=== PATIENT | female | born 1950 | race Caucasian/White ===

== ENCOUNTER 2018-09-26 23:41 | Inpatient (IN) | payer SELFPAY ==
[2018-09-26 23:41] VITALS: BMI 33.0
--- NOTE | 2018-09-27 00:31 | C.PDOC ---
History Of Present Illness 67 year old female with PMHx of HTN and DM presents to the ED c/o elevated blood pressure. Patient states she took her Metropolol at 23:20. Patient is a non insulin dependent diabetic, christine snot recall the name of the medications she takes. Patient c/o mild headache and not feeling well. Patient denies fever, chills, visual changes, neck pain, CP, SOB, palpitations, weakness, numbness. Time Seen by Provider: 09/27/18 00:30 Chief Complaint (Nursing): High Blood Pressure History Per: Patient History/Exam Limitations: no limitations Onset/Duration Of Symptoms: Hrs Current Symptoms Are (Timing): Still Present Associated Symptoms: Headache Exacerbating Factor(s): Pos: Other Recent travel outside of the [place]: No Additional History Per: Patient Past Medical History Reviewed: Historical Data, Nursing Documentation, Vital Signs Vital Signs: Last Vital Signs Temp 97.9 F 09/27/18 00:02 Pulse 90 09/27/18 00:02 Resp 20 09/27/18 00:02 BP 239/109 H 09/27/18 00:02 Pulse Ox 97 09/27/18 00:02 - Medical History PMH: Diabetes, HTN Denies: Depression Surgical History: No Surg Hx Family History: States: Unknown Family Hx - Social History Hx Alcohol Use: No Hx Substance Use: No Review Of Systems Constitutional: Positive for: Malaise. Negative for: Fever, Chills Eyes: Negative for: Vision Change Cardiovascular: Negative for: Chest Pain, Palpitations Respiratory: Negative for: Cough, Shortness of Breath Gastrointestinal: Negative for: Nausea, Vomiting, Abdominal Pain Skin: Negative for: Rash Neurological: Positive for: Headache. Negative for: Weakness, Numbness, Dizziness Physical Exam - Physical Exam Appears: Non-toxic, No Acute Distress Skin: Warm, Dry Head: Normacephalic Eye(s): bilateral: Normal Inspection, PERRL, EOMI Neck: No Midline Cervical Tenderness, Supple Chest: Symmetrical Cardiovascular: Rhythm Regular Respiratory: No Rales, No Rhonchi, No Wheezing Gastrointestinal/Abdominal: Soft, No Tenderness, No Guarding, No Rebound Extremity: Bilateral: Atraumatic, Normal Color And Temperature, Normal ROM Neurological/Psych: Oriented x3, Normal Speech, Normal Cognition Gait: Steady ED Course And Treatment - Laboratory Results Result Diagrams: 09/27/18 00:43 09/27/18 00:43 ECG: Interpreted By Me, Viewed By Me ECG Rhythm: Sinus Rhythm (74), Nonspecific Changes (lvh) O2 Sat by Pulse Oximetry: 97 (ON RA) Pulse Ox Interpretation: Normal - Radiology CXR: Interpreted by Me, Viewed By Me CXR Interpretation: Yes: Cardiomegaly, Other (mild vasc congestion). No: Infiltrates, Fracture - CT Scan/US Ct head Other Rad Studies (CT/US): Read By Radiologist, Radiology Report Reviewed CT/US Interpretation: CT scan of the head. CLINICAL HISTORY: Pressure. TECHNIQUE: Multiple axial CT images were obtained through the brain without IV contrast material. COMMENTS: There is normal configuration of sella turcica. There are no intra or extra-axial collections. There is no mass effect or midline shift. There is no evidence of hematoma formation. No hydrocephalus is present. The ventricles are symmetrical. No abnormal calcifications are present. There is diffuse age-appropriate cerebellar and cerebral atrophy with proportionally dilated ventricles and cortical sulci. There are bilateral periventricular and subcortical white matter hypolucencies compatible with mild chronic microvascular disease. Otherwise, no significant focal abnormalities are seen either in the posterior fossa or supratentorial compartment. IMPRESSION: 1. Age-appropriate cerebellar and cerebral atrophy. 2. Mild chronic microvascular disease. 3. No evidence of acute intracranial pathology. Thank you for your kind referral of this patient. . Electronically signed on Sep 27, 2018 1:25:35 AM EST by: Oh Merino M.D., Certified by ABR, MSK, Neuroradiology. Progress Note: Plan: - CT head. - EKG. - Labs. - CXR. - Trandate 20 mg IVP. - Vasotec 2.5 mg IV. - UA Critical Care Time - Critical Care Note Total Time (in mins): 30 Documented critical care: time excludes all time spent performing seperately billable procedures. Disposition Discussed With : Jw Dumont Comment: accepted the pt on his service and took over the care at 3:30 AM Doctor Will See Patient In The: ED Counseled Patient/Family Regarding: Studies Performed, Diagnosis - Disposition Disposition: HOSPITALIZED Disposition Time: 00:31 Condition: FAIR Forms: [email or web address] (Greenlandic) - POA Present On Arrival: Poor Glycemic Control - Clinical Impression Clinical Impression: Uncontrolled hypertension - Scribe Statement The provider has reviewed the documentation as recorded by the Scribe Evens Cuellar All medical record entries made by the Scribe were at my direction and personally dictated by me. I have reviewed the chart and agree that the record accurately reflects my personal performance of the history, physical exam, medical decision making, and the department course for this patient. I have also personally directed, reviewed, and agree with the discharge instructions and disposition. Decision To Admit - Pt Status Changed To: Hospital Disposition Of: Inpatient - Admit Certification Admit to Inpatient:: After my assessment, the patient will require hospitalization for at least two midnights. This is because of the severity of symptoms shown, intensity of services needed, and/or the medical risk in this patient being treated as an outpatient. - InPatient: Physician Admission Certification: I certify that this patient requires 2 or more midnights of care for the following reason:: After my assessment, the patient will require hospitalization for at least two midnights. This is because of the severity of symptoms shown, intensity of services needed, and/or the medical risk in this patient being treated as an outpatient. - . Bed Request Type: Telemetry Admitting Physician: Jw Dumont Patient Diagnosis: Uncontrolled hypertension
[2018-09-27] MEDS ORDERED: Labetalol 25mg/5ml Syringe IVP STA (00:40)
[2018-09-27] MEDS ORDERED: Enalaprilat 2.5 MG/2 ML IV ONE ×2 (00:41→01:20)
[2018-09-27 00:46] LABS: BASO % 0.6 % (0.0-2.0); EOS # 0.1 K/uL (0.0-0.7); EOS % 1.2 % (0.0-4.0); HEMOGLOBIN 14.1 g/dL (11.0-16.0); LYMPH # 1.7 K/uL (1.0-4.3); LYMPH % 22.5 % (20.0-40.0); MEAN CELL VOLUME 88.7 fL (81.0-99.0); MEAN CORPUSCULAR HEMOGLOBIN 28.9 pg (27.0-31.0); MEAN CORPUSCULAR HGB CONC 32.6 g/dL (33.0-37.0); MEAN PLATELET VOLUME 9.7 fL (7.2-11.7); MONO # 0.5 K/uL (0.0-0.8); NEUT # 5.3 K/uL (1.8-7.0); NEUT % 68.7 % (50.0-75.0); NRBC % 0.1 % (0.0-2.0); RBC 4.86 Mil/uL (3.80-5.20); RED CELL DISTRIBUTION WIDTH 13.2 % (11.5-14.5); WHITE BLOOD COUNT 7.7 K/uL (4.8-10.8)
[2018-09-27] MEDS ORDERED: Enalaprilat 2.5 MG/2 ML ONE ×2 (00:49→01:20)
[2018-09-27 01:00] LABS: ALB/GLOB RATIO 1.3 (1.0-2.1); ALBUMIN 4.8 g/dL (3.5-5.0); ALT/SGPT 24 U/L (9-52); AST/SGOT 25 U/L (14-36); BLOOD UREA NITROGEN 15 mg/dL (7-17); CALCIUM 9.5 mg/dl (8.6-10.4); GFR NON-AFRICAN AMERICAN > 60
[2018-09-27 01:16] LABS: SQUAMOUS EPITHIAL < 1 /hpf (0-5); URINE BILIRUBIN NEGATIVE (NEGATIVE); URINE BLOOD NEGATIVE (NEGATIVE); URINE CLARITY Clear (Clear); URINE COLOR Colorless (YELLOW); URINE GLUCOSE (UA) NORMAL (Normal); URINE LEUKOCYTE ESTERASE NEG Leu/uL (Negative); URINE PROTEIN NEGATIVE (NEGATIVE); URINE UROBILINOGEN NORMAL mg/dL (0.2-1.0)
[2018-09-27] MEDS ORDERED: Nitroglycerin 2% Ointment Foilpak UD TOP STA (01:20)
[2018-09-27] MEDS ORDERED: Nitroglycerin 2% Ointment Foilpak UD TOP ONE (01:21)
--- NOTE | 2018-09-27 03:58 | CP.PCM.HP ---
<Levon Rodriguez - Last Filed: 09/27/18 03:58> History of Present Illness - History of Present Illness History of Present Illness: PGY-1 History and Physical [address] Dumont Patient is a 67 year old female with PMHx HTN who presents to ED with hypertension noted upon checking BP at home. Patient missed her afternoon and evening BP med doses yesterday evening when out with her daughter. She had no symptoms today, but checked BP and systolic BP noted to be very high and patient came to ED. Initial BP in ED was 239/109. ED gave 0.4 mg clonidine, 10 mg total vasotec, and nitropaste x2. Patient has remained assymptomatic, denies headache, dizziness, vision changes, focal weakness, not c/o anxiety or appearing anxious. BP had been refractory to many medications in ER, but now better controlled 138/69. Note, patient prescribed four BP meds, but has not been taking her Nifedipine because she states it causes fatigue and has not been taking HCTZ because states causes abdominal upset. She also stated she does not want to take Losartan. PMH: HTN PSH: Fibroidectomy Social History: From [place], [place]. Denies smoking, drinking or drug history. Former professional cook All: [employer] Fam Hx: Noncontributory Medications: -Hydralazine 50 mg PO TID -Metoprolol 50 mg PO BID -HCTZ -Nifedipine 30 mg PO daily PMD: No PMD in [place] - visiting from [place] on Admission - Present on Admission Any Indicators Present on Admission: No Review of Systems - Constitutional Constitutional: absent: Chills, Fever - EENT Eyes: absent: Blurred Vision, Change in Vision, Pain, Photophobia Nose/Mouth/Throat: absent: Nasal Congestion, Nasal Discharge - Cardiovascular Cardiovascular: absent: Chest Pain, Chest Pain at Rest, Pain Radiating to Arm/Neck/Jaw, Lightheadedness, Palpitations, Syncope - Respiratory Respiratory: absent: Cough, Dyspnea - Gastrointestinal Gastrointestinal: absent: Abdominal Pain, Nausea, Vomiting - Musculoskeletal Musculoskeletal: absent: Back Pain, Neck Pain - Neurological Neurological: absent: Confusion, Dizziness, Numbness, Headaches, Weakness - Psychiatric Psychiatric: absent: Anxiety, Depression - Hematologic/Lymphatic Hematologic: absent: Easy Bleeding, Easy Bruising Past Patient History - Past Social History Smoking Status: Former Smoker - CARDIAC Hx Hypertension: Yes - MUSCULOSKELETAL/RHEUMATOLOGICAL Hx Falls: No - PSYCHIATRIC Hx Depression: No Hx Substance Use: No - SURGICAL HISTORY Hx Hysterectomy: Yes Meds Allergies/Adverse Reactions: Allergies Allergy/AdvReac Type Severity Reaction Status Date / Time No Known Allergies Allergy Verified 02/25/14 14:54 Physical Exam - Constitutional Appears: Non-toxic, No Acute Distress - Head Exam Head Exam: ATRAUMATIC, NORMOCEPHALIC - Eye Exam Eye Exam: EOMI - ENT Exam ENT Exam: Mucous Membranes Moist - Neck Exam Neck exam: Positive for: Full Rom - Respiratory Exam Respiratory Exam: Clear to Auscultation Bilateral, NORMAL BREATHING PATTERN. absent: Rhonchi, Wheezes - Cardiovascular Exam Cardiovascular Exam: REGULAR RHYTHM, +S1, +S2 - GI/Abdominal Exam GI & Abdominal Exam: Normal Bowel Sounds, Soft. absent: Tenderness - Extremities Exam Extremities exam: Positive for: normal inspection. Negative for: pedal edema - Neurological Exam Neurological exam: Alert, CN II-XII Intact, Oriented x3 - Psychiatric Exam Psychiatric exam: Normal Affect, Normal Mood - Skin Skin Exam: Dry, Intact, Normal Color Results - Vital Signs Recent Vital Signs: Last Vital Signs Temp 97.9 F 09/27/18 00:02 Pulse 77 09/27/18 03:33 Resp 18 09/27/18 03:33 BP 138/69 09/27/18 03:33 Pulse Ox 97 09/27/18 03:41 - Labs Result Diagrams: 09/27/18 00:43 09/27/18 00:43 Labs: Laboratory Results - last 24 hr 09/27/18 09/27/18 09/27/18 00:12 00:43 00:43 WBC 7.7 RBC 4.86 Hgb 14.1 Hct 43.1 MCV 88.7 MCH 28.9 MCHC 32.6 L RDW 13.2 Plt Count 222 MPV 9.7 Neut % (Auto) 68.7 Lymph % (Auto) 22.5 [place] % (Auto) 7.0 Eos % (Auto) 1.2 Baso % (Auto) 0.6 Neut # (Auto) 5.3 Lymph # (Auto) 1.7 [place] # (Auto) 0.5 Eos # (Auto) 0.1 Baso # (Auto) 0.0 PT 11.0 INR 1.0 APTT 31 Sodium Potassium Chloride Carbon Dioxide Anion Gap BUN Creatinine Est GFR ( Amer) Est GFR (Non-Af Amer) POC Glucose (mg/dL) 134 H Random Glucose Calcium Total Bilirubin AST ALT Alkaline Phosphatase Total Protein Albumin Globulin Albumin/Globulin Ratio Urine Color Urine Clarity Urine pH Ur Specific Mcmillan Urine Protein Urine Glucose (UA) Urine Ketones Urine Blood Urine Nitrate Urine Bilirubin Urine Urobilinogen Ur Leukocyte Esterase Urine WBC (Auto) Urine RBC (Auto) Ur Squamous Epith Cells B-Hydroxybutyrate 09/27/18 09/27/18 00:43 01:10 WBC RBC Hgb Hct MCV MCH MCHC RDW Plt Count MPV Neut % (Auto) Lymph % (Auto) [place] % (Auto) Eos % (Auto) Baso % (Auto) Neut # (Auto) Lymph # (Auto) [place] # (Auto) Eos # (Auto) Baso # (Auto) PT INR APTT Sodium 138 Potassium 3.6 Chloride 104 Carbon Dioxide 26 Anion Gap 12 BUN 15 Creatinine 0.4 L Est GFR ( Amer) > 60 Est GFR (Non-Af Amer) > 60 POC Glucose (mg/dL) Random Glucose 148 H Calcium 9.5 Total Bilirubin 0.3 AST 25 ALT 24 Alkaline Phosphatase 83 Total Protein 8.4 H Albumin 4.8 Globulin 3.7 Albumin/Globulin Ratio 1.3 Urine Color Colorless Urine Clarity Clear Urine pH 7.0 Ur Specific Mcmillan 1.005 Urine Protein Negative Urine Glucose (UA) Normal Urine Ketones Negative Urine Blood Negative Urine Nitrate Negative Urine Bilirubin Negative Urine Urobilinogen Normal Ur Leukocyte Esterase Neg Urine WBC (Auto) 1 Urine RBC (Auto) 1 Ur Squamous Epith Cells < 1 B-Hydroxybutyrate 0.19 Assessment & Plan - Assessment and Plan (Free Text) Assessment: Hypertensive Urgency -CXR 09/27 - f/u read -CT head 09/27 - 1. Age-appropriate cerebellar and cerebral atrophy. 2. Mild delivery director natalio microvascular disease. 3. No evidence of acute intracranial pathology. -Refractory to multiple agents given in ED -Patient assymptomatic -Ativan 0.5 mg IVP once -EKG NSR with LVH voltage criteria - suggestive of uncontrolled HTN -A1C - f/u -Echo - f/u -Monitor on telemetry Meds: -Hydralazine 50 mg PO TID -Metoprolol 50 mg PO BID -Nifedipine 30 mg PO daily PPx -Heparin 5000 U SC Q8 -HHD Assessment and plan discussed with Dr. Julia Rodriguez, PGY-1 <Jw Dumont P - Last Filed: 09/27/18 07:41> Results - Vital Signs Recent Vital Signs: Last Vital Signs Temp 97.8 F 09/27/18 04:20 Pulse 69 09/27/18 04:20 Resp 20 09/27/18 04:20 BP 110/56 L 09/27/18 04:20 Pulse Ox 95 09/27/18 04:20 - Labs Result Diagrams: 09/27/18 00:43 09/27/18 00:43 Labs: Laboratory Results - last 24 hr 09/27/18 09/27/18 09/27/18 00:12 00:43 00:43 WBC 7.7 RBC 4.86 Hgb 14.1 Hct 43.1 MCV 88.7 MCH 28.9 MCHC 32.6 L RDW 13.2 Plt Count 222 MPV 9.7 Neut % (Auto) 68.7 Lymph % (Auto) 22.5 [place] % (Auto) 7.0 Eos % (Auto) 1.2 Baso % (Auto) 0.6 Neut # (Auto) 5.3 Lymph # (Auto) 1.7 [place] # (Auto) 0.5 Eos # (Auto) 0.1 Baso # (Auto) 0.0 PT 11.0 INR 1.0 APTT 31 Sodium Potassium Chloride Carbon Dioxide Anion Gap BUN Creatinine Est GFR ( Amer) Est GFR (Non-Af Amer) POC Glucose (mg/dL) 134 H Random Glucose Calcium Total Bilirubin AST ALT Alkaline Phosphatase Total Protein Albumin Globulin Albumin/Globulin Ratio Urine Color Urine Clarity Urine pH Ur Specific Mcmillan Urine Protein Urine Glucose (UA) Urine Ketones Urine Blood Urine Nitrate Urine Bilirubin Urine Urobilinogen Ur Leukocyte Esterase Urine WBC (Auto) Urine RBC (Auto) Ur Squamous Epith Cells B-Hydroxybutyrate 09/27/18 09/27/18 00:43 01:10 WBC RBC Hgb Hct MCV MCH MCHC RDW Plt Count MPV Neut % (Auto) Lymph % (Auto) [place] % (Auto) Eos % (Auto) Baso % (Auto) Neut # (Auto) Lymph # (Auto) [place] # (Auto) Eos # (Auto) Baso # (Auto) PT INR APTT Sodium 138 Potassium 3.6 Chloride 104 Carbon Dioxide 26 Anion Gap 12 BUN 15 Creatinine 0.4 L Est GFR ( Amer) > 60 Est GFR (Non-Af Amer) > 60 POC Glucose (mg/dL) Random Glucose 148 H Calcium 9.5 Total Bilirubin 0.3 AST 25 ALT 24 Alkaline Phosphatase 83 Total Protein 8.4 H Albumin 4.8 Globulin 3.7 Albumin/Globulin Ratio 1.3 Urine Color Colorless Urine Clarity Clear Urine pH 7.0 Ur Specific [place]millan 1.005 Urine Protein Negative Urine Glucose (UA) Normal Urine Ketones Negative Urine Blood Negative Urine Nitrate Negative Urine Bilirubin Negative Urine Urobilinogen Normal Ur Leukocyte Esterase Neg Urine WBC (Auto) 1 Urine RBC (Auto) 1 Ur Squamous Epith Cells < 1 B-Hydroxybutyrate 0.19 Attending/Attestation - Attestation I have personally seen and examined this patient.: Yes I have fully participated in the care of the patient.: Yes I have reviewed all pertinent clinical information: Yes Notes (Text): 09/27/18 07:38 Uncontrolled htn as didn't take all meds, anxiety in ER, and slowly cutting down her meds without f/u, responded with ativan iv, continue with her hydralazine, metoprolol, Nifedipine ER added as it was controlling her BP, she would be good candidate for ARB/ACEI but she was refusing ARB, as she didn't like it. Echo as she has LVH Accuchecks [id number] See orders for detail.
[2018-09-27 04:28] VITALS: RESP 20
[2018-09-27] MEDS ORDERED: Glucagon Recombinant 1 mg Inj IM PRN (04:51)
[2018-09-27] MEDS ORDERED: Dextrose 50% SYRINGE Inj (50 ml) IV PRN (04:51)
[2018-09-27] MEDS: (Novolin R) Insulin Human Regular 100 units/ml vial SC SCH ×2 (07:23→12:17)
[2018-09-27 07:39] LABS: ALB/GLOB RATIO 1.2 (1.0-2.1); ALBUMIN 3.8 g/dL (3.5-5.0); ALT/SGPT 24 U/L (9-52); AST/SGOT 24 U/L (14-36); BLOOD UREA NITROGEN 17 mg/dL (7-17); CALCIUM 8.7 mg/dl (8.6-10.4); GFR NON-AFRICAN AMERICAN > 60
[2018-09-27 07:52] LABS: BASO % 0.5 % (0.0-2.0); EOS # 0.1 K/uL (0.0-0.7); HEMOGLOBIN 12.8 g/dL (11.0-16.0); LYMPH # 1.4 K/uL (1.0-4.3); LYMPH % 19.4 % (20.0-40.0); MEAN CELL VOLUME 88.9 fL (81.0-99.0); MEAN CORPUSCULAR HEMOGLOBIN 28.7 pg (27.0-31.0); MEAN CORPUSCULAR HGB CONC 32.3 g/dL (33.0-37.0); MEAN PLATELET VOLUME 10.2 fL (7.2-11.7); MONO # 0.5 K/uL (0.0-0.8); MONO % 6.7 % (0.0-10.0); NEUT # 5.3 K/uL (1.8-7.0); NEUT % 72.4 % (50.0-75.0); RBC 4.46 Mil/uL (3.80-5.20); RED CELL DISTRIBUTION WIDTH 13.3 % (11.5-14.5); WHITE BLOOD COUNT 7.4 K/uL (4.8-10.8)
--- NOTE | 2018-09-27 08:07 | CT ---
Date of service: 09/27/2018 PROCEDURE: CT HEAD WITHOUT CONTRAST. HISTORY: Headache. Evaluate for hemorrhage. COMPARISON: None available. TECHNIQUE: Axial computed tomography images were obtained through the head/brain without intravenous contrast. Radiation dose: Total exam DLP = 1013.86 mGy-cm. This CT exam was performed using one or more of the following dose reduction techniques: Automated exposure control, adjustment of the mA and/or kV according to patient size, and/or use of iterative reconstruction technique. FINDINGS: HEMORRHAGE: No intracranial hemorrhage. BRAIN: No mass effect or edema. Scattered focal lucencies in the subcortical and periventricular white matter suggestive for chronic microvascular ischemic change. Additional prominent focal scattered hypodensities seen within the bifrontal subcortical white matter, biparietal subcortical white matter, right basal ganglia, and left thalamus may be the sequelae of chronic microvascular ischemic changes; however, additional etiologies cannot entirely be excluded. Correlation with MRI may be helpful if clinically indicated. Right basal ganglia lacunar infarct. Small left thalamic lacunar infarct. VENTRICLES: Unremarkable. No hydrocephalus. CALVARIUM: Unremarkable. PARANASAL SINUSES: Unremarkable as visualized. No significant inflammatory changes. MASTOID AIR CELLS: Unremarkable as visualized. No inflammatory changes. OTHER FINDINGS: None. IMPRESSION: 1. Chronic microvascular ischemic change. 2. Additional prominent focal scattered hypodensities seen within the bifrontal subcortical white matter, biparietal subcortical white matter, right basal ganglia, and left thalamus may be the sequelae of chronic microvascular ischemic changes; however, additional etiologies cannot entirely be excluded. Correlation with MRI may be helpful if clinically indicated. 3. Right basal ganglia lacunar infarct. Small left thalamic lacunar infarct. If symptoms persists, consider correlation with MRI. A preliminary report was generated at 1:25 a.m. on 09/27/[address] Oh Merino from [facility].
[2018-09-27 08:21] VITALS: O2SAT 96
[2018-09-27] MEDS ORDERED: Potassium Chloride 20 mEq ER Tab PO ONE (09:41)
[2018-09-27] MEDS ORDERED: NIFEdipine 30 mg ER Tab PO SCH (10:00)
[2018-09-27 11:21] LABS: HDL CHOLESTEROL 52 mg/dL (30-70)
[2018-09-27 11:31] LABS: LDL CHOLESTEROL 121 mg/dL (0-129)
--- NOTE | 2018-09-27 14:49 | CP.PCM.DIS ---
<Harshil Jain - Last Filed: 09/27/18 14:49> Provider - Provider Date of Admission: 09/27/18 03:38 Attending physician: Jw Dumont MD Time Spent in preparation of Discharge (in minutes): 40 Diagnosis - Discharge Diagnosis (1) Uncontrolled hypertension Status: Acute Hospital Course - Lab Results Lab Results: Most Recent Lab Values WBC 7.4 K/uL (4.8-10.8) 09/27/18 07:41 RBC 4.46 Mil/uL (3.80-5.20) 09/27/18 07:41 Hgb 12.8 g/dL (11.0-16.0) 09/27/18 07:41 Hct 39.6 % (34.0-47.0) 09/27/18 07:41 MCV 88.9 fL (81.0-99.0) 09/27/18 07:41 MCH 28.7 pg (27.0-31.0) 09/27/18 07:41 MCHC 32.3 g/dL (33.0-37.0) L 09/27/18 07:41 RDW 13.3 % (11.5-14.5) 09/27/18 07:41 Plt Count 198 K/uL (130-400) 09/27/18 07:41 MPV 10.2 fL (7.2-11.7) 09/27/18 07:41 Neut % (Auto) 72.4 % (50.0-75.0) 09/27/18 07:41 Lymph % (Auto) 19.4 % (20.0-40.0) L 09/27/18 07:41 Evans % (Auto) 6.7 % (0.0-10.0) 09/27/18 07:41 Eos % (Auto) 1.0 % (0.0-4.0) 09/27/18 07:41 Baso % (Auto) 0.5 % (0.0-2.0) 09/27/18 07:41 Neut # (Auto) 5.3 K/uL (1.8-7.0) 09/27/18 07:41 Lymph # (Auto) 1.4 K/uL (1.0-4.3) 09/27/18 07:41 Evans # (Auto) 0.5 K/uL (0.0-0.8) 09/27/18 07:41 Eos # (Auto) 0.1 K/uL (0.0-0.7) 09/27/18 07:41 Baso # (Auto) 0.0 K/uL (0.0-0.2) 09/27/18 07:41 PT 11.0 SECONDS (9.7-12.2) 09/27/18 00:43 INR 1.0 09/27/18 00:43 APTT 31 SECONDS (21-34) 09/27/18 00:43 Sodium 141 mmol/L (132-148) 09/27/18 07:04 Potassium 3.5 mmol/L (3.6-5.2) L 09/27/18 07:04 Chloride 107 mmol/L (98-107) 09/27/18 07:04 Carbon Dioxide 27 mmol/L (22-30) 09/27/18 07:04 Anion Gap 11 (10-20) 09/27/18 07:04 BUN 17 mg/dL (7-17) 09/27/18 07:04 Creatinine 0.6 mg/dL (0.7-1.2) L 09/27/18 07:04 Est GFR ( Amer) > 60 09/27/18 07:04 Est GFR (Non-Af Amer) > 60 09/27/18 07:04 POC Glucose (mg/dL) 134 mg/dL (65-110) H 09/27/18 00:12 Random Glucose 133 mg/dL (65-105) H 09/27/18 07:04 Hemoglobin A1c 6.3 % (4.2-6.5) 09/27/18 00:43 Calcium 8.7 mg/dl (8.6-10.4) 09/27/18 07:04 Total Bilirubin 0.3 mg/dL (0.2-1.3) 09/27/18 07:04 AST 24 U/L (14-36) 09/27/18 07:04 ALT 24 U/L (9-52) 09/27/18 07:04 Alkaline Phosphatase 59 U/L (38-126) 09/27/18 07:04 Total Protein 6.9 g/dL (6.3-8.3) 09/27/18 07:04 Albumin 3.8 g/dL (3.5-5.0) 09/27/18 07:04 Globulin 3.1 gm/dL (2.2-3.9) 09/27/18 07:04 Albumin/Globulin Ratio 1.2 (1.0-2.1) 09/27/18 07:04 Triglycerides 50 mg/dL (0-149) 09/27/18 07:04 Cholesterol 187 mg/dL (0-199) 09/27/18 07:04 LDL Cholesterol Direct 121 mg/dL (0-129) 09/27/18 07:04 HDL Cholesterol 52 mg/dL (30-70) 09/27/18 07:04 Urine Color Colorless (YELLOW) 09/27/18 01:10 Urine Clarity Clear (Clear) 09/27/18 01:10 Urine pH 7.0 (5.0-8.0) 09/27/18 01:10 Ur Specific [place] 1.005 (1.003-1.030) 09/27/18 01:10 Urine Protein Negative mg/dL (NEGATIVE) 09/27/18 01:10 Urine Glucose (UA) Normal mg/dL (Normal) 09/27/18 01:10 Urine Ketones Negative mg/dL (NEGATIVE) 09/27/18 01:10 Urine Blood Negative (NEGATIVE) 09/27/18 01:10 Urine Nitrate Negative (NEGATIVE) 09/27/18 01:10 Urine Bilirubin Negative (NEGATIVE) 09/27/18 01:10 Urine Urobilinogen Normal mg/dL (0.2-1.0) 09/27/18 01:10 Ur Leukocyte Esterase Neg Isael/uL (Negative) 09/27/18 01:10 Urine WBC (Auto) 1 /hpf (0-5) 09/27/18 01:10 Urine RBC (Auto) 1 /hpf (0-3) 09/27/18 01:10 Ur Squamous Epith Cells < 1 /hpf (0-5) 09/27/18 01:10 B-Hydroxybutyrate 0.19 mM (0.02-0.27) 09/27/18 00:43 - Hospital Course Hospital Course: HPI: Patient is a 67 year old female with past medical history of hypertension, medication noncomplaince who presents to ED with hypertension noted upon checking BP at home. Patient missed her afternoon and evening BP med doses yesterday evening when out with her daughter. She had no symptoms today, but checked BP and systolic BP noted to be very high and patient came to ED. Initial BP in ED was 239/109. ED gave 0.4 mg clonidine, 10 mg total vasotec, and nitropaste x2. Patient has remained assymptomatic, denies headache, dizziness, vision changes, focal weakness, not c/o anxiety or appearing anxious. BP had been refractory to many medications in ER, but now better controlled 138/69. Note, patient prescribed four BP meds, but has not been taking her Nifedipine because she states it causes fatigue and has not been taking HCTZ because states causes abdominal upset. She also stated she does not want to take Losartan. During course of admission: Patient was started on Hydralazine 50 mg PO TID, Metoprolol 50 mg PO BID, and Nifedipine ER 30 mg PO daily. Patient was also given a one-time dose of Ativan 0.5 mg IVP, as patient exhibited anxiety in the ED. EKG obtained demonstrated normal sinus rhythm with left ventricular hypertrophy, suggestive of uncontrolled hypertension. Echocardiogram was obtained. A1c was obtained, revealed to be 6.3. Patient was counseled on diet modification to decrease risk of progression to diabetes. Blood pressure decreased during hospital course. Patient remained in no acute distress, afebrile, with no acute somatic complaints. Patient is medically stable for discharge to home as per Dr. Tay. Patient is instructed to continue taking all blood pressure medications as prescribed, with scripts provided. Please follow up with your primary care provider (Dr. Rich Holland) within 3-5 days of discharge for further monitoring of blood pressure and medication adjustment as needed. Patient was counseled on the importance of adhering to all medications given by her healthcare provider to ensure blood pressure is stable. The risks associated with increased blood pressure, including kidney damage, stroke, heart attack, and were explained to patient. If symptoms worsen, please return to the ED immediately. The following is a summary of hospital course. For full detail, please refer to EMR. - Date & Time of H&P Date of H&P: 09/27/18 Time of H&P: 14:41 Discharge Exam - Head Exam Head Exam: ATRAUMATIC, NORMAL INSPECTION, NORMOCEPHALIC - Eye Exam Eye Exam: EOMI, Normal appearance Pupil Exam: NORMAL ACCOMODATION - ENT Exam ENT Exam: Mucous Membranes Moist, Normal Exam - Neck Exam Neck exam: Full Rom, Normal Inspection - Respiratory Exam Respiratory Exam: Clear to PA & Lateral, NORMAL BREATHING PATTERN, UNREMARKABLE. absent: Accessory Muscle Use, Rales, Rhonchi, Wheezes, Respiratory Distress, Stridor - Cardiovascular Exam Cardiovascular Exam: REGULAR RHYTHM, +S1, +S2 - GI/Abdominal Exam GI & Abdominal Exam: Normal Bowel Sounds, Soft, Unremarkable. absent: Distended, Firm, Guarding, Rebound, Rigid, Tenderness - Extremities Exam Extremities exam: full ROM, normal capillary refill, normal inspection, pedal pulses present - Back Exam Back exam: NORMAL INSPECTION - Neurological Exam Neurological exam: Alert, Normal Gait, Oriented x3 - Psychiatric Exam Psychiatric exam: Normal Affect, Normal Mood - Skin Skin Exam: Dry, Intact, Normal Color, Warm Discharge Plan - Discharge Medications Prescriptions: hydrALAZINE [Apresoline] 50 mg PO TID 14 Days tab Metoprolol Tartrate [Lopressor] 50 mg PO BID 14 Days tab NIFEdipine ER [Procardia XL] 30 mg PO DAILY [address] Days ter - Follow Up Plan Condition: FAIR Disposition: HOME/ ROUTINE Instructions: DASH Diet, High Blood Pressure (DC), Medicines for High Blood Pressure, Hydralazine, Metoprolol, Nifedipine Additional Instructions: Patient is medically stable for discharge to home as per Dr. Tay. Patient is instructed to continue taking all blood pressure medications as prescribed, with scripts provided. Please follow up with your primary care provider (Dr. Rich Holland) within 3-5 days of discharge for further monitoring of blood pressure and medication adjustment as needed. Patient was counseled on the importance of adhering to all medications given by her healthcare provider to ensure blood pressure is stable. The risks associated with increased blood pressure, including kidney damage, stroke, heart attack, and were explained to patient. If symptoms worsen, please return to the ED immediately. El paciente se encuentra mdicamente estable para el ilan hospitalaria segn el Dr. Tay. Se instruye al paciente para que contine tomando todos los medicamentos para la presin arterial segn lo prescrito, con los scripts proporcionados. Por favor, fredy un seguimiento con [place]ulton proveedor de atencin primaria (Dr. Rich Holland) dentro de los 3 a 5 angulo posteriores al ilan para un mayor control de la presin arterial y el ajuste de los medicamentos segn sea necesario. Se aconsej a la paciente sobre la importancia de adherirse a todos los medicamentos administrados por f[place] proveedor de atencin mdica para garantizar que la presin arterial se mantenga estable. Se explicaron al paciente los riesgos asociados con el aumento de la presin arterial, incluido el drake renal, el accidente cerebrovascular, el ataque cardaco y la muerte. Si los sntomas empeoran, por favor regrese al servicio de urgencias inmediatamente. <John Tay - Last Filed: 09/27/18 17:20> Provider - Provider Date of Admission: 09/27/18 03:38 Attending physician: Jw Dumont MD Hospital Course - Lab Results Lab Results: Most Recent Lab Values WBC 7.4 K/uL (4.8-10.8) 09/27/18 07:41 RBC 4.46 Mil/uL (3.80-5.20) 09/27/18 07:41 Hgb 12.8 g/dL (11.0-16.0) 09/27/18 07:41 Hct 39.6 % (34.0-47.0) 09/27/18 07:41 MCV 88.9 fL (81.0-99.0) 09/27/18 07:41 MCH 28.7 pg (27.0-31.0) 09/27/18 07:41 MCHC 32.3 g/dL (33.0-37.0) L 09/27/18 07:41 RDW 13.3 % (11.5-14.5) 09/27/18 07:41 Plt Count 198 K/uL (130-400) 09/27/18 07:41 MPV 10.2 fL (7.2-11.7) 09/27/18 07:41 Neut % (Auto) 72.4 % (50.0-75.0) 09/27/18 07:41 Lymph % (Auto) 19.4 % (20.0-40.0) L 09/27/18 07:41 Evans % (Auto) 6.7 % (0.0-10.0) 09/27/18 07:41 Eos % (Auto) 1.0 % (0.0-4.0) 09/27/18 07:41 Baso % (Auto) 0.5 % (0.0-2.0) 09/27/18 07:41 Neut # (Auto) 5.3 K/uL (1.8-7.0) 09/27/18 07:41 Lymph # (Auto) 1.4 K/uL (1.0-4.3) 09/27/18 07:41 Evans # (Auto) 0.5 K/uL (0.0-0.8) 09/27/18 07:41 Eos # (Auto) 0.1 K/uL (0.0-0.7) 09/27/18 07:41 Baso # (Auto) 0.0 K/uL (0.0-0.2) 09/27/18 07:41 PT 11.0 SECONDS (9.7-12.2) 09/27/18 00:43 INR 1.0 09/27/18 00:43 APTT 31 SECONDS (21-34) 09/27/18 00:43 Sodium 141 mmol/L (132-148) 09/27/18 07:04 Potassium 3.5 mmol/L (3.6-5.2) L 09/27/18 07:04 Chloride 107 mmol/L (98-107) 09/27/18 07:04 Carbon Dioxide 27 mmol/L (22-30) 09/27/18 07:04 Anion Gap 11 (10-20) 09/27/18 07:04 BUN 17 mg/dL (7-17) 09/27/18 07:04 Creatinine 0.6 mg/dL (0.7-1.2) L 09/27/18 07:04 Est GFR ( Amer) > 60 09/27/18 07:04 Est GFR (Non-Af Amer) > 60 09/27/18 07:04 POC Glucose (mg/dL) 134 mg/dL (65-110) H 09/27/18 00:12 Random Glucose 133 mg/dL (65-105) H 09/27/18 07:04 Hemoglobin A1c 6.3 % (4.2-6.5) 09/27/18 00:43 Calcium 8.7 mg/dl (8.6-10.4) 09/27/18 07:04 Total Bilirubin 0.3 mg/dL (0.2-1.3) 09/27/18 07:04 AST 24 U/L (14-36) 09/27/18 07:04 ALT 24 U/L (9-52) 09/27/18 07:04 Alkaline Phosphatase 59 U/L (38-126) 09/27/18 07:04 Total Protein 6.9 g/dL (6.3-8.3) 09/27/18 07:04 Albumin 3.8 g/dL (3.5-5.0) 09/27/18 07:04 Globulin 3.1 gm/dL (2.2-3.9) 09/27/18 07:04 Albumin/Globulin Ratio 1.2 (1.0-2.1) 09/27/18 07:04 Triglycerides 50 mg/dL (0-149) 09/27/18 07:04 Cholesterol 187 mg/dL (0-199) 09/27/18 07:04 LDL Cholesterol Direct 121 mg/dL (0-129) 09/27/18 07:04 HDL Cholesterol 52 mg/dL (30-70) 09/27/18 07:04 Urine Color Colorless (YELLOW) 09/27/18 01:10 Urine Clarity Clear (Clear) 09/27/18 01:10 Urine pH 7.0 (5.0-8.0) 09/27/18 01:10 Ur Specific [place] 1.005 (1.003-1.030) 09/27/18 01:10 Urine Protein Negative mg/dL (NEGATIVE) 09/27/18 01:10 Urine Glucose (UA) Normal mg/dL (Normal) 09/27/18 01:10 Urine Ketones Negative mg/dL (NEGATIVE) 09/27/18 01:10 Urine Blood Negative (NEGATIVE) 09/27/18 01:10 Urine Nitrate Negative (NEGATIVE) 09/27/18 01:10 Urine Bilirubin Negative (NEGATIVE) 09/27/18 01:10 Urine Urobilinogen Normal mg/dL (0.2-1.0) 09/27/18 01:10 Ur Leukocyte Esterase Neg Isael/uL (Negative) 09/27/18 01:10 Urine WBC (Auto) 1 /hpf (0-5) 09/27/18 01:10 Urine RBC (Auto) 1 /hpf (0-3) 09/27/18 01:10 Ur Squamous Epith Cells < 1 /hpf (0-5) 09/27/18 01:10 B-Hydroxybutyrate 0.19 mM (0.02-0.27) 09/27/18 00:43 Attending/Attestation - Attestation I have personally seen and examined this patient.: Yes I have fully participated in the care of the patient.: Yes I have reviewed all pertinent clinical information, including history, physical exam and plan: Yes Notes (Text): 09/27/18 17:15 Medical attending: Patient was seen and examined by me. Agree with the above note by the resident The patient was not in any acute distress. We had a sample grader help us and with the help of the sample grader we explained to her the significance of taking her medication for blood pressure It appears that this is a compliance issue and she felt discouraged with the number of BP medications she has to take She did report there is a history of high blood pressure as well as family members having complications due to the elevated BP, so she is aware of the need of controlling her BP John Tay
[2018-09-27] MEDS ORDERED: Pneumococcal 23-Valent Vaccine IM ONE ×2 (15:34→16:51)
--- NOTE | 2018-09-27 16:56 | RAD ---
HISTORY: SOB COMPARISON: None available. TECHNIQUE: Chest, one view. FINDINGS: LUNGS: Mild venous congestion. No focal consolidation. Please note that chest x-ray has limited sensitivity for the detection of pulmonary masses. PLEURA: No significant pleural effusion identified. No definite pneumothorax . CARDIOVASCULAR: Heart size appears top normal. No significant atherosclerotic calcification present. OSSEOUS STRUCTURES: Degenerative changes of the spine. VISUALIZED UPPER ABDOMEN: Unremarkable. OTHER FINDINGS: None. IMPRESSION: Mild venous congestion.
[2018-09-27 17:09] VITALS: BP 149/72; PULSE 64; TEMP 97.8
--- NOTE | 2018-09-27 23:40 | CARD ---
APPROVED REPORT Date of service: 09/27/2018 EXAM: Two-dimensional and M-mode echocardiogram with Doppler and color Doppler. INDICATION Chest Pain Syncope Palpitations LVH RISK FACTORS Hypertension 2D DIMENSIONS IVSd1.0 (0.7-1.1cm)LVDd4.4 (3.9-5.9cm) PWd1.0 (0.7-1.1cm)LA Sdgefq43 (18-58mL) LVDs3.1 (2.5-4.0cm)FS (%) 29.5 % LVEF (%)56.7 (>50%)LVEF (Lemus's)61.32 % M-Mode DIMENSIONS Left Atrium (MM)3.34 (2.5-4.0cm)IVSd0.81 (0.7-1.1cm) Aortic Root3.58 (2.2-3.7cm)LVDd5.60 (4.0-5.6cm) Aortic Cusp Exc.2.22 (1.5-2.0cm)PWd0.79 (0.7-1.1cm) FS (%) 36 %LVDs3.58 (2.0-3.8cm) LVEF (%)65 (>50%) Mitral Valve MV E Mmbbfclg28.4cm/sMV A Ndxhrxhl43.2cm/sE/A ratio0.6 TDI Lateral E' Peak V6.80cm/sMedial E' Peak V4.61cm/sE/Lateral E'8.7 E/Medial E'12.9 Tricuspid Valve TR Peak [id number]/sTR Peak [id number] LEFT VENTRICLE The left ventricle is normal size. There is normal left ventricular wall thickness. Left ventricle systolic function is normal. The Ejection Fraction is 60-65%. There is normal LV segmental wall motion. The left ventricular diastolic function is abnormal- Grade I-abnormal relaxation pattern. No left ventricle thrombus noted on this study. RIGHT VENTRICLE The right ventricle is normal size. The right ventricular systolic function is normal. ATRIA The left atrium size is normal. The right atrium size is normal. AORTIC VALVE The aortic valve is normal in structure. No aortic regurgitation is present. There is no aortic valvular stenosis. There is no aortic valvular vegetation. MITRAL VALVE Mitral annular calcification is mild. There is no evidence of mitral valve prolapse. There is no mitral valve stenosis. Mitral regurgitation is trace to mild. TRICUSPID VALVE The tricuspid valve is normal in structure. There is trace to mild tricuspid regurgitation. Right ventricular systolic pressure is estimated at 30-40 mmHg. There is no pulmonary hypertension. There is no tricuspid valve prolapse or vegetation. There is no tricuspid valve stenosis. PULMONIC VALVE The pulmonic valve is not well visualized. There is trace pulmonic valvular regurgitation. GREAT VESSELS The aortic root is normal in size. The IVC is normal in size and collapses >50% with inspiration. PERICARDIAL EFFUSION There is no pericardial effusion. There is no pleural effusion. <Conclusion> The left ventricle is normal size. Left ventricle systolic function is normal. The Ejection Fraction is 60-65%. The left ventricular diastolic function is abnormal- Grade I-abnormal relaxation pattern. The right ventricle is normal size. The right ventricular systolic function is normal. The left atrium size is normal. The right atrium size is normal. Mitral regurgitation is trace to mild. There is trace to mild tricuspid regurgitation.
[2018-09-28] MEDS ORDERED: Pneumococcal 23-Valent Vaccine IM ONE (14:00)
--- NOTE | 2018-09-29 21:55 | CARD ---
APPROVED REPORT Date of service: 09/27/2018 EKG Measurement Heart [id number] <Conclusion> Normal sinus rhythm Voltage criteria for left ventricular hypertrophy Abnormal ECG
== END 2018-09-27 18:16 | disposition home or self-care (01) | DRG 305 ==
LOC: C.ER 23:41 → C.6T 09-27 03:38
PROVIDERS: ADMIT Internal Medicine; ATTEND Internal Medicine
DX: I16.0 Hypertensive urgency (principal); I10 Essential (primary) hypertension; E11.9 Type 2 diabetes mellitus without complications; F41.9 Anxiety disorder, unspecified; Z91.14 Patient's other noncompliance with medication regimen; Z79.899 Other long term (current) drug therapy; Z87.891 Personal history of nicotine dependence; Z90.710 Acquired absence of both cervix and uterus; Z79.84 Long term (current) use of oral hypoglycemic drugs